=== PATIENT | female | born 1960 | race Caucasian/White ===

== ENCOUNTER 2023-11-05 15:19 | Emergency (ER) | payer OTHER, SELFPAY ==
[2023-11-05 15:22] VITALS: BP 152/85
--- NOTE | 2023-11-05 15:44 | ED.GENMED ---
History of Present Illness
General
Chief Complaint: Fall
Source: patient
Time Seen by Provider: 11/05/23 15:38
Travel History
Have you had any contact with someone who has COVID-19?: No
Do you have any symptoms of coronavirus? Fever > 100 degrees, chills, cough, shortness of breath, sore throat, loss of taste or smell, muscle aches, or headache?: No
History of Present Illness
History of Present Illness:
62-year-old female with past medical history of GERD presenting to the emergency department for evaluation after she tripped on a step and fell onto her right arm. Patient states she is having pain along her right elbow and hand right around her
thenar eminence. There is no loss consciousness, head injury, vomiting, visual changes. Patient is currently in an orthopedic boot on her left foot for a previous injury.
Past History
Past History
ED Past Medical History: GERD
ED Past Surgical History: Gynecological
Social History
Tobacco: Non-smoker
Alcohol: None
Drug: None
Personal:
Living: with family
Review of Systems
Review of Systems
All Other Systems: ROS reviewed and negative except as documented in HPI and ROS
Phy Exam
Physical Exam
Physical Exam:
GENERAL: Alert , in no apparent distress
EYE: conjunctiva clear
Head: Normocephalic atraumatic
NECK: Supple,
ENT: mmm.
LUNGS: no acute respiratory distress
NEUROLOGICAL: Alert and oriented
SKIN: Warm and dry, skin intact.
MUSCULOSKELETAL: Right upper extremity: No obvious deformity, erythema, edema, ecchymosis, abrasions or lacerations patient allows for active and passive range of motion of the right elbow wrist and digits but states she gets pain with full
extension of the right elbow. She also has increased pain with pronation and supination. No focal areas of tenderness over the elbow, forearm or wrist. There is mild tenderness over the thenar eminence. Extremities otherwise warm and
well-perfused and neurovascularly intact.
PSYCH: Normal and appropriate interaction.
Scores
Heart Failure Risk
Heart Failure Risk Score: Not Applicable
Heart Score for Chest Pain Patients
STEMI patient?: Not applicable
Withdrawal Assessment of Alcohol
Withdrawal Assessment Completed?: Not applicable
Course
Orders/Labs/Results
Orders:
Orders
11/05/23 15:38
CR Elbow - Right Min 3 Views Urgent
Comment:
Reason For Exam: pain after fall
CR Hand - Right Min 3 Views Urgent
Comment:
Reason For Exam: pain after fall
11/05/23 15:40
CR Forearm - Right 2 View Urgent
Comment:
Reason For Exam: pain after a fall
Vital Signs
Initial and Last Documented VS:
Initial Vital Signs
Temp Pulse Resp BP Pulse Ox
98.7 F 92 18 152/85 98
11/05/23 15:22 11/05/23 15:22 11/05/23 15:22 11/05/23 15:22 11/05/23 15:22
Last Documented Vital Signs
Temp Pulse Resp BP Pulse Ox
98.7 F 92 18 152/85 98
11/05/23 15:22 11/05/23 15:22 11/05/23 15:22 11/05/23 15:22 11/05/23 15:22
MDM/Problems Addressed
Differential Diagnosis Includes:
Sprain, contusion, fracture, no concern for dislocation
MDM/Problems Addressed:
62-year-old female present emergency department for evaluation following an accidental fall. Patient noting injuries to her right elbow, forearm and hand. X-rays were ordered. Reassessment following. Patient declining anything for pain.
*Radiology
Radiology exam reviewed: preliminary read by ED provider (Radial head fracture)
*Pulse Oximetry
Patient hypoxic: no
*Critical Care Note
Total Time (30-74mins, 75-104mins- exclusive of procedures): Not Applicable
Patient Management
Escalation/DeEscalation of care consider admission/obs:
Patient's x-ray shows a radial head fracture that is minimally displaced. Remaining x-rays are unremarkable for any other acute pathologies. Stable for discharge home and outpatient follow-up with her orthopedist. Aware of return precautions to
the ER.
ED Attending Note
-
Portions of this chart may have been created with voice recognition software.� Occasional wrong word or��sound alike� substitutions may have occurred due to the inherent limitations of voice recognition software.
Discharge Plan
Departure
Patient Disposition: Home (Routine Discharge)
Date of Disposition: 11/05/23
Time of Disposition: 16:27
Patient with high blood pressure during this ER visit?: Yes
Discharge Problem:
Closed fracture of head of right radius
Instructions: Elbow Fracture (DC)
Prescriptions:
No Action
amoxicillin-pot clavulanate 875 MG/125 MG tablet
1 tab PO Q12 Qty: 20 0RF
Referrals:
Darline Michael CRNP [Family Provider] -
Interventions
Interventions:
*ED COVID-19 Vaccine History Last Done: 11/05/23 15:27
ED-Musculoskeletal Assessment Last Done: 11/05/23 15:36
ED- Neurological Assessment Last Done: 11/05/23 15:36
ED-Skin Assessment Last Done: 11/05/23 15:37
== END 2023-11-05 16:55 | disposition home or self-care (01) ==
LOC: EMR 15:19
PROVIDERS: EMERGENCY PHYSICIAN Emergency Medicine; FAMILY PHYSICIAN Nurse Practitioner
DX: S52.121A Displaced fracture of head of right radius, initial encounter for closed fracture (principal); W10.9XXA Fall (on) (from) unspecified stairs and steps, initial encounter; K21.9 Gastro-esophageal reflux disease without esophagitis
CPT/HCPCS: 99283; 73080; 73090; 73130

== ENCOUNTER → 2023-12-29 | Outpatient (REF) | payer OTHER, SELFPAY | LOC: DHSLP | PROVIDERS: ATTENDING PHYSICIAN Internal Medicine Critical Care Medicine; FAMILY PHYSICIAN Nurse Practitioner | DX: G47.30 Sleep apnea, unspecified (principal); R06.83 Snoring | CPT/HCPCS: 95800 ==

== ENCOUNTER → 2024-02-14 09:38 | Outpatient (REF) | payer OTHER, SELFPAY | LOC: DHSLP 09:38 | PROVIDERS: ATTENDING PHYSICIAN Internal Medicine Critical Care Medicine; FAMILY PHYSICIAN Nurse Practitioner | DX: G47.33 Obstructive sleep apnea (adult) (pediatric) (principal) | CPT/HCPCS: 95810 ==

== ENCOUNTER → 2024-11-21 06:50 | Outpatient (REF) | payer OTHER, SELFPAY | LOC: HWWDC 06:50 | PROVIDERS: ATTENDING PHYSICIAN Nurse Practitioner | DX: Z12.31 Encounter for screening mammogram for malignant neoplasm of breast (principal) | CPT/HCPCS: 77063; 77067 ==